=== PATIENT | male | born 2000 | race Caucasian/White ===

== ENCOUNTER 2023-10-16 15:00 | Outpatient (RCR) | payer BC | END 2023-10-19 | disposition home or self-care (01) | LOC: WSOT | DX: M25.521 Pain in right elbow (principal) ==

== ENCOUNTER 2023-11-10 15:00 | Outpatient (RCR) | payer BC | END 2023-11-19 | disposition home or self-care (01) | LOC: WSOT | DX: G56.21 Lesion of ulnar nerve, right upper limb (principal) ==

== ENCOUNTER 2023-11-20 15:02 | Outpatient (RCR) | payer BC | END 2023-11-20 16:00 | disposition home or self-care (01) | LOC: WSOT 15:02 | DX: G56.21 Lesion of ulnar nerve, right upper limb (principal) ==